=== PATIENT | male | born 1985 | race American Indian/Alaskan Native ===

== ENCOUNTER 2018-08-19 01:21 | Emergency (ER) | payer OTHER ==
[2018-08-19 01:28] VITALS: BP 146/89
[2018-08-19] MEDS ORDERED: BOOSTRIX IM ONE ×3 (02:22→02:50)
--- NOTE | 2018-08-19 02:51 | Emergency Department Report ---
ED Upper Extremity Inj HPI - General Chief Complaint: Wound/Laceration Stated Complaint: LACERATION TO FINGER Time Seen by Provider: 08/19/18 02:14 Source: EMS Mode of arrival: Ambulatory Limitations: No Limitations - History of Present Illness Initial Comments: A 33-year-old Afro[place] male was walking down an embankment on yesterday where he lost his footing slipped and now it is hands behind him, hitting a sharp object of an unknown type resulting in a laceration to his finger. He tried to self treat with the wound continue to remain open and having some dull throbbing pain about 12 hours later seeks evaluation emergency Department. The laceration is. It is irregular and about 4 cm in length to 2 cm wide dull throbbing pain, worse with palpation or range of motion. MD Complaint: Injury to:: right Other Extremity Injury: Fingers: Right Other Injuries: none Handedness: right Place: home Improves With: none Worsens With: none Context: laceration, injury Associated Symptoms: denies other symptoms. denies: numbness, neck pain, suspects foreign body, nausea/vomiting, heard/felt popping sensat - Related Data Previous Rx's Medication Instructions Recorded Last Taken Type Acetaminophen/Codeine [Tylenol #3] 1 tab PO Q6H PRN #15 tab 09/04/15 Unknown Rx cephALEXin [Keflex] 500 mg PO Q6HR #40 capsule 09/04/15 Unknown Rx Allergies Allergy/AdvReac Type Severity Reaction Status Date / Time No Known Allergies Allergy Unverified 09/04/15 17:26 ED Review of Systems ROS: Stated complaint: LACERATION TO FINGER Other details as noted in HPI Constitutional: denies: chills, fever Eyes: denies: eye pain, eye discharge, vision change ENT: denies: ear pain, throat pain Respiratory: denies: cough, shortness of breath, wheezing Cardiovascular: denies: chest pain, palpitations Endocrine: no symptoms reported Gastrointestinal: denies: abdominal pain, nausea, diarrhea Genitourinary: denies: urgency, dysuria Musculoskeletal: denies: back pain, joint swelling, arthralgia Skin: other (laceration to finger). denies: rash, lesions Neurological: denies: headache, weakness, paresthesias Psychiatric: denies: anxiety, depression Hematological/Lymphatic: denies: easy bleeding, easy bruising ED Past Medical Hx - Past Medical History Hx Hypertension: Yes - Surgical History Past Surgical History?: No - Social History Smoking Status: Current Every Day Smoker Substance Use Type: None - Medications Home Medications: Home Medications Medication Instructions Recorded Confirmed Last Taken Type Acetaminophen/Codeine [Tylenol #3] 1 tab PO Q6H PRN #15 tab 09/04/15 Unknown Rx cephALEXin [Keflex] 500 mg PO Q6HR #40 capsule 09/04/15 Unknown Rx ED Physical Exam - General Limitations: No Limitations General appearance: alert, in no apparent distress - Head Head exam: Present: atraumatic, normocephalic - Eye Eye exam: Present: normal appearance, PERRL, EOMI. Absent: scleral icterus, conjunctival injection, periorbital swelling, periorbital tenderness Pupils: Present: normal accommodation - ENT ENT exam: Present: normal exam, normal orophraynx, mucous membranes moist, TM's normal bilaterally - Neck Neck exam: Present: normal inspection, full ROM - Respiratory Respiratory exam: Present: normal lung sounds bilaterally. Absent: respiratory distress, wheezes, rales, chest wall tenderness, accessory muscle use - Cardiovascular Cardiovascular Exam: Present: regular rate, normal rhythm. Absent: systolic murmur, diastolic murmur, rubs, gallop - GI/Abdominal GI/Abdominal exam: Present: soft, normal bowel sounds - Rectal Rectal exam: Present: deferred - Extremities Exam Extremities exam: Present: normal inspection - Back Exam Back exam: Present: normal inspection - Neurological Exam Neurological exam: Present: alert, oriented X3 - Psychiatric Psychiatric exam: Present: normal affect, normal mood - Skin Skin exam: Present: warm, dry, intact, normal color. Absent: rash ED Course Vital Signs 08/19/18 01:26 Temperature 98.6 F Pulse Rate 77 Respiratory 18 Rate Blood Pressure 146/89 O2 Sat by Pulse 98 Oximetry Critical care attestation.: If time is entered above; I have spent that time in minutes in the direct care of this critically ill patient, excluding procedure time. ED Disposition Condition: Stable
== END 2018-08-19 03:15 | disposition home or self-care (01) ==
LOC: ED 01:21
DX: S61.219A Laceration without foreign body of unspecified finger without damage to nail, initial encounter (principal); F17.200 Nicotine dependence, unspecified, uncomplicated; I10 Essential (primary) hypertension; W45.8XXA Other foreign body or object entering through skin, initial encounter; Y93.01 Activity, walking, marching and hiking; Y99.8 Other external cause status; Y92.018 Other place in single-family (private) house as the place of occurrence of the external cause
CPT/HCPCS: 90471; 90715; 99283